=== PATIENT | female | born 1960 | race Caucasian/White ===

== ENCOUNTER → 2017-03-31 | Outpatient (CLI) | payer OTHER | LOC: CPPFTMAIN 11:42 | PROVIDERS: ATTEND Family Medicine | DX: R06.02 Shortness of breath (principal) | CPT/HCPCS: 94060; 94726; 94729 ==

== ENCOUNTER → 2019-07-13 | Outpatient (CLI) | payer OTHER ==
--- NOTE | 2019-07-13 12:02 | US ---
EXAMINATION TYPE: US abdomen complete DATE OF EXAM: 07/13/2019 COMPARISON: NONE CLINICAL HISTORY: R10.11 Right upper quadrant pain, R11.0 nausea. RUQ pain and N/V x 2 months, diffic ult to obtain history: patient only reads lips. EXAM MEASUREMENTS: Liver Length: 13.2 cm Gallbladder Wall: 0.2 cm CBD: 0.4 cm Spleen: 11.1 cm Right Kidney: 10.4 x 5.6 x 4.4 cm Left Kidney: 10.7 x 5.3 x 4.7 cm Difficult and limited study due to patient body habitus Pancreas: obscured by overlying midline bowel gas Liver: scanned intercostally, limited by rib shadowing, heterogeneous, decreased visualization of ve ssels Gallbladder: multiple echogenic shadowing stones with largest measuring 1.4cm, wall measures wnl Evidence for sonographic Vega's sign: n/a CBD: visualized portions wnl, limited by overlying bowel gas Spleen: visualized portions wnl, limited by overlying bowel gas Right Kidney: Mild right hydronephrosis. No nephrolithiasis seen. Left Kidney: wnl Upper IVC: wnl Abd Aorta: ectatic borderline aneurysmal proximal aorta The liver is homogenous. The intrahepatic portion of the IVC and proximal abdominal aorta are within normal limits although ectasia of the proximal aorta is seen. Common bile duct is unremarkable. The pancreas is obscured. The spleen is unremarkable. Kidneys are symmetric and free of hydronephrosis . No renal lesions are seen. IMPRESSION: 1. Cholelithiasis without sonographic evidence of acute cholecystitis. Common bile duct is suboptimal ly viewed as there is overlying bowel gas. 2. Mild right-sided hydronephrosis, unknown etiology. 3. 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 4. Obscuration of the pancreas by overlying bowel gas.
== END | disposition home or self-care (01) ==
LOC: RADUSWWP 09:59
PROVIDERS: ATTEND Family Medicine
DX: K80.20 Calculus of gallbladder without cholecystitis without obstruction (principal); I77.811 Abdominal aortic ectasia; N20.0 Calculus of kidney
CPT/HCPCS: 76700

== ENCOUNTER → 2019-09-06 | Outpatient (CLI) | payer OTHER | END | disposition home or self-care (01) | LOC: LABPAT 14:04 | PROVIDERS: ATTEND Surgery Plastic and Reconstructive Surgery | DX: Z01.810 Encounter for preprocedural cardiovascular examination (principal) | CPT/HCPCS: 93005 ==

== ENCOUNTER → 2020-02-14 | Outpatient (CLI) | payer OTHER | END | disposition home or self-care (01) | LOC: LABPAT 08:57 | PROVIDERS: ATTEND Surgery Plastic and Reconstructive Surgery | DX: U07.1 COVID-19 (principal) | CPT/HCPCS: 87635 ==

== ENCOUNTER 2020-02-16 10:49 | Day surgery (SDC) | payer OTHER ==
[2020-02-15 09:12] VITALS: BMI 40.3
--- NOTE | 2020-02-15 21:29 | P.GSHP ---
History of Present Illness H&P Date: 02/16/20 CHIEF COMPLAINT: History of gallstones. HISTORY OF PRESENT ILLNESS: Zaida Cabrera is a 59-year-old female with history of bilateral deafness who only will read lips. She comes in with at least over a year history of right upper quadrant abdominal pain from gallstones. There are no reports of recent nausea or vomiting. She now presents for the first time to me in consultation. She has no alleviating factors. PAST MEDICAL HISTORY: Please see list PAST SURGICAL HISTORY: Please see list MEDICATIONS: Please see list ALLERGIES: Please see list SOCIAL HISTORY: Please see list FAMILY HISTORY: Please see list REVIEW OF ORGAN SYSTEMS: Additionally reports: HEENT: Troubles with hearing. Bilateral hearing aids. Read lips. Cardiovascular: No reports of recent chest pain. She had a recent cardiac assessment. CONSTITUTIONAL: No fevers or chills. No recent weight loss. EYES: Denies any trouble with vision. No glasses. RESPIRATORY: Denies pneumonia. Denies any troubles with breathing or dyspnea on exertion. GASTROINTESTINAL: Denies fatty food intolerance. Denies change in bowel habits and gas bloat. GENITOURINARY: Denies any blood in urine or increased urinary frequency. NEUROLOGICAL: Denies any numbness or tingling along the distal extremities. No seizure disorders or headaches. MUSCULOSKELETAL: Has back pain, stiffness or joint arthritis. SKIN: No current skin cancer. No rash. PSYCHIATRIC: Has depression or suicidal thoughts. ENDOCRINE: Denies current thyroid disorders. Denies any blood sugar glucose intolerance. HEME/LYMPHATIC: Denies any lumps and bumps around the neck. No recent deep venous thrombosis. ALLERGY/IMMUNOLOGY: No immunoglobulin therapy. No immune deficiencies. BREAST: Denies current breast lumps, pain or nipple discharge. PHYSICAL EXAM: VITAL SIGNS: Patient is a 58-year-old female. CONSTITUTIONAL: Well developed and in no acute distress. Vitals reviewed. EYES: Conjuctivae without sclera icterus. Pupils are equally round and reactive to light. Extraocular movements grossly intact. HEAD, EARS, NOSE, THROAT: Moist buccal mucosa. Head is atraumatic, normocephalic. No nasal drainage. Has bilateral hearing aids. NECK: Supple. No JV distention. No thyroidomegaly. RESPIRATORY: Non-labored respirations and equal bilateral excursions. No gross wheezes. CARDIOVASCULAR: Regular rate and rhythm. Extremities without moderate edema. Palpable 2+ radial pulses. ABDOMEN: No hepatomegaly. Soft. Non-tender. Nondistended. LYMPH: No neck lymphadenopathy. No axillary lymphadenopathy. MUSCULOSKELETAL: Nail and fingers with good capillary refill. SKIN: Warm and well perfused with good skin turgor. NEUROLOGIC: Cranial nerves I through XII grossly intact. Sensation upper and extremities intact. No focal or lateralizing signs. PSYCH: Appropriate affect. Alert and oriented to person, place and time. Displays appropriate insight. STUDIES: Ultrasound of the gallbladder was independently reviewed and demonstrated large multiple gallstones. ASSESSMENT: 1. Epigastric and right upper quadrant abdominal pain 2. Chronic cholecystitis 3. Symptomatic gallstones. PLAN: 1. Will need a robotic cholecystectomy possible open. Benefits and risks were described. 2. Heparin for DVT prophylaxis 5000 units. 3. Antibiotic prophylaxis. Past Medical History Additional Past Medical History / Comment(s): IRREGULAR HEART BEAT, BACK PAIN. History of Any Multi-Drug Resistant Organisms: None Reported Past Surgical History: No Surgical Hx Reported Additional Past Anesthesia/Blood Transfusion Reaction / Comment(s): NO ANESTHESIA HX Past Psychological History: No Psychological Hx Reported Smoking Status: Never smoker Past Alcohol Use History: None Reported Past Drug Use History: None Reported - Past Family History Father Family Medical History: Cancer Medications and Allergies Home Medications Medication Instructions Recorded Confirmed Type Acetaminophen [Tylenol Extra 1,000 mg PO DIRECTED PRN 02/15/20 02/15/20 History Strength] Latanoprost [Xalatan 0.005%] 1 drop BOTH EYES HS 02/15/20 02/15/20 History Naproxen 500 mg PO DIRECTED PRN 02/15/20 02/15/20 History Allergies Allergy/AdvReac Type Severity Reaction Status Date / Time egg Allergy Unknown Abdominal Verified 02/15/20 08:50 Pain
[~2020-02-16 10:49] MED LIST: HEPARIN SODIUM,PORCINE 5,000 UNIT/ML 1 ML VIAL SQ ONE
[2020-02-16] MEDS ORDERED: HYDROmorphone 0.5 MG/0.5 ML SYRINGE IVP PRN (11:04)
[2020-02-16] MEDS ORDERED: INDOCYANINE GREEN 25 MG VIAL IV STA (11:04)
[2020-02-16] MEDS ORDERED: TAMSULOSIN 0.4 MG CAP.ER.24H PO STA (11:04)
[2020-02-16] MEDS ORDERED: LACTATED RINGERS 1,000 ML IV SCH (11:04)
[2020-02-16] MEDS ORDERED: ACETAMINOPHEN TAB 500 MG TAB PO STA (11:04)
[2020-02-16] MEDS ORDERED: fentaNYL (PF) 50 MCG/ML 2 ML AMP IV PRN (11:04)
[2020-02-16] MEDS ORDERED: LIDOCAINE 1% (10MG/ML) FOR IV START INTRADERMA PRN (11:04)
[2020-02-16] MEDS ORDERED: GABAPENTIN 300 MG CAP PO STA (11:04)
[2020-02-16] MEDS ORDERED: ONDANSETRON 4 MG/2 ML VIAL IVP ONE (11:04)
[2020-02-16] MEDS ORDERED: DEXAMETHASONE SOD PHOSPHATE 10 MG/ML 1 ML VIAL IV ONE (11:35)
[2020-02-16 11:56] LABS: Basophils # (A) 0.1 k/uL (0-0.2); Basophils % (A) 1 %; Eosinophils # (A) 0.3 k/uL (0-0.7); Eosinophils % (A) 4 %; HCT 45.6 % (34.0-46.0); HGB 14.5 gm/dL (11.4-16.0); Lymphocytes # (A) 2.6 k/uL (1.0-4.8); Lymphocytes % (A) 34 %; MCHC 31.8 g/dL (31.0-37.0); MCV 91.5 fL (80.0-100.0); Monocytes # (A) 0.4 k/uL (0-1.0); Monocytes % (A) 6 %; Neutrophils # (A) 4.1 k/uL (1.3-7.7); Neutrophils % (A) 53 %; Platelet Count 295 k/uL (150-450); RBC 4.98 m/uL (3.80-5.40); RDW 13.3 % (11.5-15.5); WBC 7.7 k/uL (3.8-10.6)
[2020-02-16 12:11] LABS: Albumin 4.2 g/dL (3.5-5.0); Calcium 9.4 mg/dL (8.4-10.2); Potassium 4.2 mmol/L (3.5-5.1); Total Bilirubin 0.6 mg/dL (0.2-1.3); Total Protein 7.3 g/dL (6.3-8.2)
[2020-02-16] MEDS ORDERED: GLYCOPYRROLATE 0.2 MG/ML 2 ML VIAL ONE (13:27)
[2020-02-16] MEDS ORDERED: fentaNYL (PF) 50 MCG/ML 2 ML AMP ONE (13:27)
[2020-02-16] MEDS ORDERED: ePHEDrine SULFATE/0.9% NACL/PF 50 MG/5 ML SYRINGE IV ONE (13:27)
[2020-02-16] MEDS ORDERED: HYDROmorphone (PF) 1 MG/ML ONE (13:27)
[2020-02-16] MEDS ORDERED: INDOCYANINE GREEN 25 MG VIAL IV ONE (13:27)
[2020-02-16] MEDS ORDERED: NEOSTIGMINE 1 MG/ML 10 ML VIAL ONE (13:27)
[2020-02-16] MEDS ORDERED: PROPOFOL 10 MG/ML 20 ML VIAL IV ONE (13:27)
[2020-02-16] MEDS ORDERED: SUCCINYLCHOLINE CHLORIDE 100 MG/5 ML SYR IV ONE (13:27)
[2020-02-16] MEDS ORDERED: ROCURONIUM BROMIDE 10 MG/ML 5 ML VIAL IV ONE (13:27)
[2020-02-16] MEDS ORDERED: LIDOCAINE 1% INJ 10MG/ML (20 ML MDV) ONE (13:27)
[2020-02-16] MEDS ORDERED: MIDAZOLAM 2 MG/2 ML VIAL ONE (13:27)
[2020-02-16] MEDS ORDERED: LACTATED RINGERS 1,000 ML IV ONE (13:50)
[2020-02-16] MEDS ORDERED: BUPIVACAIN-EPI 0.25%-1:200,000 30 ML VIAL SQ ONE ×2 (13:53→13:54)
[2020-02-16 14:59] VITALS: TEMP 97.9
[2020-02-16 15:02] VITALS: RESP 16
--- NOTE | 2020-02-16 15:39 | P.OP ---
Date of Procedure: 02/16/20 Description of Procedure: SURGEON: MONAE ROWAN MD PREOPERATIVE DIAGNOSES: 1. Symptomatic gallstones 2. History of bilateral hearing loss 3. Morbid obesity due to excess calories, BMI 41.2 POSTOPERATIVE DIAGNOSES: 1. Symptomatic gallstones 2. History of bilateral hearing loss 3. Morbid obesity due to excess calories, BMI 41.2 OPERATION: Robotic-assisted da Marilee Xi laparoscopic cholecystectomy, multiport with FIREFLY ESTIMATED BLOOD LOSS: 5 mL. SPECIMENS REMOVED: Gallbladder. COMPLICATIONS: None. OPERATIVE FINDINGS: 1. Chronic cholecystitis with gallstones INDICATIONS: The patient is a 59-year-old female who presents with gallstones. Surgical intervention with a laparoscopic cholecystectomy was described. Robotic assisted laparoscopic approach was described. Benefits and risks of the procedure including but not limited to bleeding, infection, injury to the biliary tree was described. Informed consent was obtained. DESCRIPTION OF PROCEDURE: Patient was brought to the operating room, placed in supine position. After general induction, the abdomen had been prepped and draped in standard sterile fashion. The robotic da Marilee XI system was primed. After a timeout protocol was performed, the patient had been prepped and draped in standard sterile fashion. The patient was injected with indocyanine green. A 5 mm 0 degrees laparoscopic trocar entry was performed along the left upper quadrant. The abdomen insufflated to 15 mmHg pressure which was tolerated well. Diagnostic laparoscopy demonstrated no injury to bowel viscera or mesentery. The liver surface was unremarkable. Next, two 8 mm robotic ports were placed along the right upper abdomen. The camera 8-mm port was maintained along the epigastrium. Another 8 mm port was placed along the left upper abdominal wall after exchanging the 5 mm port. Please note that the ports were placed at least 10 to 15 cm away from the target anatomy of the gallbladder. The robot was docked along the left lateral abdomen. The patient was repositioned in reverse Trendelenburg position. Using a grasper for arm 3, a grasper for arm 4, including hook cautery for arm 1, the robotic system was docked and primed as described. Instruments were interchanged by the assistant program manager including hook cautery, Bovie cautery and clip appliers. I had sat at the console. The gallbladder fundus was retracted over the dome of the liver. Initial attention was brought to the infundibulum including cystic lymph node. Initial dissection was performed over the cystic lymph node at the infundibulum using hook cautery. The infundibulum was retracted laterally to expose the cystic duct away from the common bile duct. The cystic duct including the cystic artery were dissected free from its surrounding tissue. The gallbladder was decompressed. Sponge was used to evacuate bile from the abdomen. FIREFLY was used to identify the cystic artery and cystic structures. A critical view of safety was obtained. Large PLASTIC clips were used throughout the entire case. Using a clip nuclear radiation engineer, 2 clips were placed along the cystic duct away from the common bile duct. The cystic duct was divided between clips. Next, the cystic artery was similarly clipped and cauterized. Electro-Bovie cautery was used to remove the gallbladder from the hepatic fossa. Hemostasis was checked and found to be adequate. The robot was undocked. I re-scrubbed into the case. Using a 10 mm Endo Catch bag via the left upper quadrant incision, the specimen was removed from the abdominal cavity. All pneumoperitoneum instruments were evacuated from the abdominal cavity. The incisions were reapproximated using 4-0 Monocryl in an interrupted subcuticular fashion. Fascial defects were less than 8 mm in size. Please note along the trocar sites, local anesthetic was placed as a field block prior to insertion of all instruments. Liquid glue was applied to the skin. At the end of the procedure needle, sponge, and instrument count had been verified correct by the pm technician. The patient was transferred to postanesthesia care unit in stable condition. Plan - Discharge Summary Discharge Rx Participant: No New Discharge Prescriptions: New Ibuprofen [Motrin] 600 mg PO Q8HR PRN #30 tab PRN Reason: Pain Continue Latanoprost [Xalatan 0.005%] 1 drop BOTH EYES HS Acetaminophen [Tylenol Extra Strength] 1,000 mg PO DIRECTED PRN PRN Reason: Pain Naproxen 500 mg PO DIRECTED PRN PRN Reason: Pain Discharge Medication List Acetaminophen [Tylenol Extra Strength] 1,000 mg PO DIRECTED PRN 02/15/20 [History] Latanoprost [Xalatan 0.005%] 1 drop BOTH EYES HS 02/15/20 [History] Naproxen 500 mg PO DIRECTED PRN 02/15/20 [History] Ibuprofen [Motrin] 600 mg PO Q8HR PRN #30 tab 02/16/20 [Rx] Follow up Appointment(s)/Referral(s): Monae Rowan MD [STAFF PHYSICIAN] - 02/21/20 Patient Instructions/Handouts: *Surgery [facility] - Laparoscopic Cholecystectomy Discharge Instructions, Low Fat Diet (DC), Laparoscopic Cholecystectomy (DC) Activity/Diet/Wound Care/Special Instructions: No lifting over 10 pounds in 2 weeks until March 01. May shower. No bath tub soaks for two weeks until March 01. Diet as tolerated. No driving while on narcotics. Use Tylenol and ibuprofen or Aleve scheduled for the next 24-48 hours for best pain relief. Use ice along incisions for the today to prevent swelling. Discharge Disposition: HOME SELF-CARE
--- NOTE | 2020-02-16 15:40 | P.PN ---
Progress Note - Text Progress Note Date: 02/16/20 Patient has history of deafness. I notified the patient's contact sister Shell. Messages left that surgery went well. Number contacted [phone]
[2020-02-16 17:07] VITALS: BP 113/55; PULSE 86
== END 2020-02-16 18:10 | disposition home or self-care (01) ==
LOC: OR 10:49
PROVIDERS: ATTEND Surgery Plastic and Reconstructive Surgery
DX: K80.10 Calculus of gallbladder with chronic cholecystitis without obstruction (principal); H91.93 Unspecified hearing loss, bilateral; I49.9 Cardiac arrhythmia, unspecified; M54.9 Dorsalgia, unspecified; E66.01 Morbid (severe) obesity due to excess calories; Z68.41 Body mass index [BMI] 40.0-44.9, adult; Z97.4 Presence of external hearing-aid; Z79.899 Other long term (current) drug therapy; Z91.012 Allergy to eggs; Z80.9 Family history of malignant neoplasm, unspecified
CPT/HCPCS: 47562; S2900; 80053; 85025; 88304

== ENCOUNTER → 2021-01-04 | Outpatient (CLI) | payer OTHER ==
--- NOTE | 2021-01-04 18:13 | CT ---
EXAMINATION TYPE: CT abdomen pelvis w con DATE OF EXAM: 01/04/2021 COMPARISON: None INDICATION: ab pain x 6 months DLP: 3195.5 mGycm, Automated exposure control for dose reduction was used. CONTRAST: 100 mL of Isovue 300. Study performed with Oral Contrast TECHNIQUE: Axial images were obtained from above the diaphragm to the pubic rami in the axial plane a t 5 mm thick sections. Reconstructed images are reviewed on the computer in the coronal plane. FINDINGS: Limited CT sections are obtained the lung bases. The lung bases are clear. CT ABDOMEN: Liver: Normal Spleen: Normal Pancreas: Normal Adrenal glands: The adrenal glands are normal. Gallbladder: Not identified Kidneys: No masses are evident. No hydronephrosis is present. No cysts are present. Delayed images were obtained through the kidneys, which remain unremarkable. Aorta: Normal Inferior vena cava: Normal. CT PELVIS: Loops of bowel within the abdomen and pelvis are normal. There are loops of bowel which are incom pletely distended or lack oral contrast limiting their evaluation. Appendix: Normal as visualized. Urinary bladder: Normal. Genitourinary structures: Uterus is unremarkable. Adnexal regions are clear. Osseous structures: No suspicious lytic or sclerotic lesions. IMPRESSIONS: 1. No suspicious abnormality to account for patient's chronic abdomen pain.
== END | disposition home or self-care (01) ==
LOC: RADCTMAIN 09:24
PROVIDERS: ATTEND Surgery Plastic and Reconstructive Surgery
DX: K52.9 Noninfective gastroenteritis and colitis, unspecified (principal)
CPT/HCPCS: 74177; Q9967 ×2

== ENCOUNTER 2021-01-16 08:11 | Day surgery (SDC) | payer OTHER ==
[2021-01-15 09:49] VITALS: BMI 42.6
--- NOTE | 2021-01-16 08:06 | P.GSHP ---
History of Present Illness H&P Date: 01/16/21 CHIEF COMPLAINT: GERD and colitis HISTORY OF PRESENT ILLNESS: The patient is a 60-year-old female who presents with gastroesophageal reflux disease and colitis. Upper and lower endoscopy were offered for further evaluation and management. PAST MEDICAL HISTORY: Please see list. PAST SURGICAL HISTORY: Please see list. MEDICATIONS: Please see list. ALLERGIES: Please see list. SOCIAL HISTORY: No illicit drug use FAMILY HISTORY: No reports of Crohn disease or ulcerative colitis. REVIEW OF ORGAN SYSTEMS: CONSTITUTIONAL: No reports of fevers or chills. PHYSICAL EXAM: VITAL SIGNS: Stable GENERAL: Well-developed pleasant in no acute distress. HEENT: No scleral icterus. Extraocular movements grossly intact. Moist buccal mucosa. NECK: Supple without lymphadenopathy. CHEST: Unlabored respirations. Equal bilateral excursions. CARDIOVASCULAR: Regular rate and rhythm. Distal 2+ pulses. ABDOMEN: Soft, nondistended. MUSCULOSKELETAL: No clubbing, cyanosis, or edema. ASSESSMENT: 1. Gastroesophageal reflux disease 2. Colitis PLAN: 1. Recommend proceeding with an upper and lower endoscopy Past Medical History Additional Past Medical History / Comment(s): having bleeding with stools,hx IRREGULAR HEART BEAT, BACK PAIN. History of Any Multi-Drug Resistant Organisms: None Reported Past Surgical History: Cholecystectomy Past Anesthesia/Blood Transfusion Reactions: No Reported Reaction Additional Past Anesthesia/Blood Transfusion Reaction / Comment(s): NO ANESTHESIA HX Smoking Status: Never smoker - Past Family History Father Family Medical History: Cancer Medications and Allergies Home Medications Medication Instructions Recorded Confirmed Type Latanoprost [Xalatan 0.005%] 1 drop BOTH EYES HS 02/15/20 01/15/21 History Allergies Allergy/AdvReac Type Severity Reaction Status Date / Time egg Allergy Unknown Abdominal Verified 01/15/21 09:43 Pain
[~2021-01-16 08:11] MED LIST changes: -HEPARIN SODIUM,PORCINE 5,000 UNIT/ML 1 ML VIAL SQ ONE; +LACTATED RINGERS 1,000 ML IV SCH; +LIDOCAINE 1% (10MG/ML) FOR IV START INTRADERMA PRN
[2021-01-16 08:29] VITALS: TEMP 98.4
[2021-01-16] MEDS ORDERED: PROPOFOL 10 MG/ML 20 ML VIAL IV ONE (08:44)
[2021-01-16] MEDS ORDERED: LIDOCAINE 1% INJ 10MG/ML (20 ML MDV) ONE (08:44)
--- NOTE | 2021-01-16 09:01 | P.PCN ---
Date of Procedure: 01/16/21 Description of Procedure: PREOPERATIVE DIAGNOSIS: Gastrointestinal bleeding Deafness Morbid obesity POSTOPERATIVE DIAGNOSIS: Diaphragmatic hiatal hernia Gastritis with superficial ulcer OPERATION: Esophagogastroduodenoscopy with biopsies along antrum. SURGEON: Monae Rowan MD ANESTHESIA: MAC. INDICATIONS: The patient is a 60-year-old female who presents with a history of gastrointestinal bleeding. Benefits and risks of the procedure were described. Informed consent was obtained. DESCRIPTION: The patient was brought into the endoscopy suite and laid in the left lateral decubitus position. An Olympus gastroscope was passed along the posterior oropharynx down to the distal esophagus where the squamocolumnar junction was encountered at 34 cm from the incisors. The stomach was entered and no bile reflux was found. Additional findings are listed below. Biopsies with cold forceps were obtained of the antrum. The first through third portion of the duodenum was examined and unremarkable. Retroflexion of the scope confirmed Hill grade 4 lower esophageal valve. The squamocolumnar junction demonstrated LA grade B erosive esophagitis. The stomach was desufflated. The patient tolerated the procedure well. FINDINGS: Squamocolumnar junction 34 cm from the incisors. Diaphragmatic hiatus at 36 cm. Hiatal hernia, 2 cm, fixed Hill grade 4 lower esophageal valve. LA grade B erosive esophagitis. No active duodenitis. Acute gastritis with superficial gastric ulcer less than 3 mm without bleeding RECOMMENDATIONS: Upper endoscopy as needed.
--- NOTE | 2021-01-16 09:23 | P.PCN ---
Date of Procedure: 01/16/21 Description of Procedure: PREOPERATIVE DIAGNOSIS: History of colitis History of gastrointestinal bleeding Deafness POSTOPERATIVE DIAGNOSIS: History of colitis History of gastrointestinal bleeding Deafness OPERATION: Colonoscopy to the cecum, ileocecal valve and appendiceal orifice. SURGEON: Monae Rowan MD. ANESTHESIA: MAC. INDICATIONS: The patient is a 60-year-old female who presents with history of colitis and gastrointestinal bleeding. Benefits and risks were described and informed consent was obtained. DESCRIPTION OF PROCEDURE: The patient had undergone Sutab prep. The patient had been brought into the operating room and laid in the left lateral decubitus position. After adequate i ntravenous sedation, the rectum was examined with 2% lidocaine jelly. No external hemorrhoids were encountered. The rectal tone was within normal limits. No lesions were palpated in the rectal vault. An Olympus colonoscope was advanced until the cecum, ileocecal valve and appendiceal orifice were clearly viewed. The prep was excellent. No scattered diverticulosis was encountered. No colonic polyps were found. No evidence of focal colitis was found. Retroflexion of the scope demonstrated grade 1 internal hemorrhoids without active bleeding or inflammation. The colon was desufflated. The patient had tolerated the procedure well. Withdrawal time was over 6 minutes. FINDINGS: Aronchick preparation quality scale 1 (1-5) Internal hemorrhoids, grade 1 No external prolapsed hemorrhoids. No arteriovenous malformations. No adenomatous polyps. No focal colitis. No sigmoid diverticulosis RECOMMENDATIONS: Lower endoscopy in 2030 or Cologaurd Plan - Discharge Summary Discharge Rx Participant: No New Discharge Prescriptions: Continue Latanoprost [Xalatan 0.005%] 1 drop BOTH EYES Discharge Medication List Latanoprost [Xalatan 0.005%] 1 drop BOTH EYES 02/15/20 [History] Follow up Appointment(s)/Referral(s): Monae Rowan MD [STAFF PHYSICIAN] - 01/22/21 Patient Instructions/Handouts: *[facility] - (Anesthesia) Endoscopy Discharge Instructions, Colonoscopy (DC), Diet for Stomach Ulcers and Gastritis (ED), Gastritis (DC) Activity/Diet/Wound Care/Special Instructions: Repeat colonoscopy 2030 Discharge Disposition: HOME SELF-CARE
[2021-01-16 09:41] VITALS: BP 121/73; PULSE 73; RESP 16
== END 2021-01-16 10:05 | disposition home or self-care (01) ==
LOC: ORWHC2ENDO 08:11
PROVIDERS: ATTEND Surgery Plastic and Reconstructive Surgery
DX: K22.10 Ulcer of esophagus without bleeding (principal); K44.9 Diaphragmatic hernia without obstruction or gangrene; K25.9 Gastric ulcer, unspecified as acute or chronic, without hemorrhage or perforation; K92.2 Gastrointestinal hemorrhage, unspecified; Z90.49 Acquired absence of other specified parts of digestive tract; Z80.9 Family history of malignant neoplasm, unspecified; E66.01 Morbid (severe) obesity due to excess calories; Z68.41 Body mass index [BMI] 40.0-44.9, adult; M54.9 Dorsalgia, unspecified; H91.90 Unspecified hearing loss, unspecified ear; Z79.899 Other long term (current) drug therapy; Z91.012 Allergy to eggs
CPT/HCPCS: 88305; 45378; 43239; J2001; J2704

== ENCOUNTER → 2021-11-29 | Outpatient (CLI) | payer OTHER ==
--- NOTE | 2021-11-29 18:35 | US ---
EXAMINATION TYPE: US pelvis complete transvag DATE OF EXAM: 11/29/2021 COMPARISON: CT 11/09/2020 CLINICAL HISTORY: R10.2 Pelvic pain. TECHNIQUE: Transvaginal (TV) and Transabdominal (TA) . Transabdominal sonographic images of the pel vis were acquired. Transvaginal sonographic images were medically necessary to better assess the fol lowing anatomy: Uterus Date of LMP: post menopausal EXAM MEASUREMENTS: Uterus: 6.6 x 4.4 x 4.7 cm Endometrial Stripe: 0.7 cm Right Ovary: not identified Left Ovary: not identified 1. Uterus: Anteverted wnl 2. Endometrium: thickened 3. Right Ovary: not identified 4. Left Ovary: not identified 5. Bilateral Adnexa: wnl 6. Posterior cul-de-sac: wnl IMPRESSION: Post menopausal findings, endometrial stripe thickness 7 mm is slightly increased, limite d exam
== END | disposition home or self-care (01) ==
LOC: RADUSWWP 15:30
PROVIDERS: ATTEND Obstetrics & Gynecology
DX: R93.89 Abnormal findings on diagnostic imaging of other specified body structures (principal); Z78.0 Asymptomatic menopausal state
CPT/HCPCS: 76830; 76856

== ENCOUNTER → 2022-01-27 | Outpatient (CLI) | payer OTHER ==
[2022-01-28 00:56] LABS: Basophils # (A) 0.08 X 10*3/uL (0.00-0.10); Basophils % (A) 0.9 %; Eosinophils # (A) 0.38 X 10*3/uL (0.04-0.35); Eosinophils % (A) 4.3 %; HCT 45.3 % (37.2-46.3); HGB 14.6 g/dL (12.0-15.0); Immature Grans, Automated 0.4 %; Lymphocytes # (A) 2.93 X 10*3/uL (0.90-5.00); Lymphocytes % (A) 32.8 %; MCH 28.6 pg (27.0-32.0); MCHC 32.2 g/dL (32.0-37.0); MCV 88.8 fL (80.0-97.0); Monocytes # (A) 0.78 X 10*3/uL (0.20-1.00); Monocytes % (A) 8.7 %; NRBC Per 100 WBC 0 /100 WBCS (0.0-0.0); Neutrophils # (A) 4.72 X 10*3/uL (1.80-7.70); Neutrophils % (A) 52.9 %; Platelet Count 304 X 10*3/uL (140-440); RDW 13.5 % (11.5-14.5); WBC 8.93 X 10*3/uL (4.50-10.00)
== END | disposition home or self-care (01) ==
LOC: LABPAT 15:42
PROVIDERS: ATTEND Obstetrics & Gynecology
DX: Z01.812 Encounter for preprocedural laboratory examination (principal)
CPT/HCPCS: 85025; 93005

== ENCOUNTER → 2022-01-27 | Outpatient (CLI) | payer OTHER ==
--- NOTE | 2022-01-27 16:04 | US ---
EXAMINATION TYPE: US pelvic complete DATE OF EXAM: 01/27/2022 COMPARISON: US 2021 CLINICAL HISTORY: R93.89 ENDOMETRIAL THICKENING. Pelvic pain TECHNIQUE: . Transabdominal sonographic images of the pelvis were acquired. Transvaginal sonographi c images were medically necessary to better assess the following anatomy: uterus and ovaries Date of LMP: post menopausal EXAM MEASUREMENTS: Uterus: 6.2 x 2.1 x 2.6 cm Endometrial Stripe: 0.6 cm Difficult and limited study due to patient body habitus 1. Uterus: anteverted, heterogeneous 2. Endometrium: wnl 3. Right Ovary: not seen 4. Left Ovary: not seen 5. Bilateral Adnexa: wnl 6. Posterior cul-de-sac: wnl IMPRESSION: 1. No suspicious abnormality pelvic ultrasound
== END | disposition home or self-care (01) ==
LOC: RADUSWWP 14:58
PROVIDERS: ATTEND Obstetrics & Gynecology
DX: R93.89 Abnormal findings on diagnostic imaging of other specified body structures (principal); R10.2 Pelvic and perineal pain
CPT/HCPCS: 76830; 76856

== ENCOUNTER 2022-02-06 06:22 | Day surgery (SDC) | payer OTHER ==
[2022-02-04 11:20] VITALS: BMI 42.6
--- NOTE | 2022-02-05 20:26 | P.HPOB ---
History of Present Illness H&P Date: 02/05/22 Chief Complaint: Postmenopausal bleeding, endometrial thickening This is a 61 y.o. female, 0, who presents for dilatation and curettage with hysteroscopy due to endometrial thickening on ultrasound along with postmenopausal bleeding. She had bleeding that started suddenly about 2 weeks ago and lasted 1 day. She noticed it with wiping and denied any cramping. Her pelvic ultrasound showed uterus measuring 6.6 x 4.4 x 4.7 cm with endometrial thickness of 0.7 cm. Neither ovary was visualized. OB Hx: G0. 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 Social Hx: Single. 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 Review of Systems Constitutional: Denies chills, Denies fever Eyes: denies blurred vision, denies pain Ears: bilateral: decreased hearing Ears, nose, mouth and throat: Reports headache, Denies sore throat Cardiovascular: Denies chest pain, Denies shortness of breath Respiratory: Denies cough Gastrointestinal: Reports abdominal pain (Right lower quadrant), Denies nausea Genitourinary: Reports abnormal vaginal bleeding, Reports urinary frequency Menstruation: Reports postmenopausal Musculoskeletal: Reports low back pain, Reports muscle cramps, Reports myalgias Integumentary: Denies pruritus, Denies rash Neurological: Reports headaches Psychiatric: Denies anxiety, Denies depression Endocrine: Denies fatigue, Denies weight change Past Medical History Additional Past Medical History / Comment(s): IRREGULAR HEART BEAT, BACK PAIN. Hearing loss since . Glaucoma. History of Any Multi-Drug Resistant Organisms: None Reported Past Surgical History: Cholecystectomy Past Anesthesia/Blood Transfusion Reactions: No Reported Reaction Past Psychological History: No Psychological Hx Reported Smoking Status: Never smoker Past Alcohol Use History: None Reported Past Drug Use History: None Reported - Past Family History Father Family Medical History: AFIB, Cancer (Prostate) Medications and Allergies Home Medications Medication Instructions Recorded Confirmed Type Naproxen [Naprosyn] 500 mg PO DAILY 02/04/22 02/04/22 History Latanoprost/Pf [Latanoprost 0.005% 1 drop BOTH EYES HS 02/05/22 02/05/22 History Eye Drop] Oxybutynin Chloride [Ditropan XL] 02/05/22 History Allergies Allergy/AdvReac Type Severity Reaction Status Date / Time egg Allergy Unknown Abdominal Verified 05/03/22 11:14 Pain Exam Osteopathic Statement: *. No significant issues noted on an osteopathic structural exam other than those noted in the History and Physical/Consult. HEENT: within normal limits Heart: regular rate and rhythm Lungs: clear to auscultation bilaterally Abdomen: soft, non-tender Pelvic: uterus slightly enlarged, tender with bilateral adnexal tenderness. No masses palpated. Extremities: Negative Andreea's Assessment and Plan (1) Postmenopausal bleeding Current Visit: No Status: Acute Code(s): N95.0 - POSTMENOPAUSAL BLEEDING SNOMED Code(s): 57154669 (2) Endometrial thickening on ultrasound Current Visit: No Status: Acute Code(s): R93.89 - ABNORMAL FINDINGS ON DX IMAGING OF OTH BODY STRUCTURES SNOMED Code(s): 662102866 Plan: Proceed with dilatation and curettage with hysteroscopy. I have discussed the risks, benefits, and alternative therapies for the above- mentioned procedure and for both sedation/anesthesia as well as necessary blood products administration, if indicated, as they pertain to this patient. The patient has indicated her understanding and acceptance of the risks and procedures discussed.
[~2022-02-06 06:22] MED LIST changes: -LACTATED RINGERS 1,000 ML IV SCH; -LIDOCAINE 1% (10MG/ML) FOR IV START INTRADERMA PRN; +Pre Op ABX Message 1 EACH MISC MISCELLANE ONE
[2022-02-06] MEDS ORDERED: LACTATED RINGERS 1,000 ML IV SCH (06:33)
[2022-02-06] MEDS ORDERED: DEXAMETHASONE SOD PHOSPHATE 4 MG/ML 1 ML VIAL IV ONE (06:33)
[2022-02-06] MEDS ORDERED: HYDROmorphone 0.5 MG/0.5 ML SYRINGE IVP PRN (06:33)
[2022-02-06] MEDS ORDERED: LIDOCAINE 1% (10MG/ML) FOR IV START INTRADERMA PRN (06:33)
[2022-02-06] MEDS ORDERED: ONDANSETRON 4 MG/2 ML VIAL IVP ONE (06:33)
[2022-02-06] MEDS ORDERED: MIDAZOLAM 2 MG/2 ML VIAL IV PRN (06:33)
[2022-02-06] MEDS ORDERED: LIDOCAINE 2% INJ 20 MG/ML (2 ML VIAL) ONE (07:34)
[2022-02-06] MEDS ORDERED: MIDAZOLAM 2 MG/2 ML VIAL ONE (07:34)
[2022-02-06] MEDS ORDERED: PROPOFOL 10 MG/ML 20 ML VIAL IV ONE (07:34)
[2022-02-06] MEDS ORDERED: SUCCINYLCHOLINE CHLORIDE 100 MG/5 ML SYR IV ONE (07:34)
[2022-02-06] MEDS ORDERED: fentaNYL (PF) 50 MCG/ML 2 ML AMP ONE (07:34)
[2022-02-06] MEDS ORDERED: KETOROLAC 15 MG/ML 1 ML VIAL ONE (07:34)
--- NOTE | 2022-02-06 08:04 | P.OP ---
Date of Procedure: 02/06/22 Preoperative Diagnosis: Postmenopausal bleeding Endometrial thickening on ultrasound Postoperative Diagnosis: Same plus cervical polyp and endometrial polyps Procedure(s) Performed: Dilation and curettage with hysteroscopy Anesthesia: CURT Surgeon: Josie Child Estimated Blood Loss (ml): 10 Pathology: other (Endometrial curettings) Condition: stable Disposition: same day Indications for Procedure: This is a 61 y.o. female, 0, who presents for dilatation and curettage with hysteroscopy due to endometrial thickening on ultrasound along with postmenopausal bleeding. She had bleeding that started suddenly about 2 weeks ago and lasted 1 day. She noticed it with wiping and denied any cramping. Her pelvic ultrasound showed uterus measuring 6.6 x 4.4 x 4.7 cm with endometrial thickness of 0.7 cm. Neither ovary was visualized. Operative Findings: Uterus is sounded to 6-1/2 cm. A fairly large approximately 2 cm cervical polyp is noted at the endocervical os. Upon hysteroscopy, there are noted to be a couple more endometrial polyps noted. The background endometrium appears very atrophic. Left tubal ostia is visualized. Right tubal ostia is unable to be visualized. Scant endometrial curettings are obtained. Description of Procedure: The patient is taken to the operating room she's placed in the dorsal lithotomy position. She is prepped and draped in the normal sterile fashion. Her bladder is drained with a catheter. Examination is performed under anesthesia. Uterus is found to be small, anteverted, with no adnexal masses palpated. Next a small right angle retractor was used to visualize the cervix. The anterior lip of the cervix is grasped with a Allis clamp. Next a fairly large approximately 2 cm endocervical polyp is noted. Ring forcep is used to grasp this polyp and it is twisted off a stalk and removed. Next uterus is sounded to 6-1/2 cm. The cervix is gently dilated with Olson dilators. Next hysteroscopy is performed using normal saline. The above noted findings are made and pictures are taken. Cervix is gently dilated further. The polyp forceps was introduced through the cervix and several polyps were removed. Next a small sharp curet was introduced and sharp curettage was performed until a gritty texture was noted. Minimal further tissue was obtained. Next the specimen is removed from the field. Allis clamp was removed from the anterior lip of the cervix. No active bleeding is noted. All instruments are removed from the vagina. All sponge counts are correct. The patient is then taken to recovery room in stable condition.
[2022-02-06 08:25] VITALS: TEMP 97
[2022-02-06 08:46] VITALS: RESP 17
[2022-02-06 09:07] VITALS: BP 127/83; PULSE 63
== END 2022-02-06 09:34 | disposition home or self-care (01) ==
LOC: OR 06:22
PROVIDERS: ATTEND Obstetrics & Gynecology
DX: N95.0 Postmenopausal bleeding (principal); N84.0 Polyp of corpus uteri; N84.1 Polyp of cervix uteri; Z79.1 Long term (current) use of non-steroidal anti-inflammatories (NSAID); Z90.49 Acquired absence of other specified parts of digestive tract; Z82.49 Family history of ischemic heart disease and other diseases of the circulatory system; Z80.9 Family history of malignant neoplasm, unspecified
CPT/HCPCS: 58558; 88305; J2250; J1100; J2405; J3010; J1885; J0330; J2704; J2001